=== PATIENT | female | born 1990 | race American Indian/Alaskan Native ===

== ENCOUNTER 2020-06-03 23:18 | Emergency (ER) | payer SELFPAY ==
[2020-06-03 23:59] VITALS: BP 117/75
--- NOTE | 2020-06-04 01:12 | XRay Report ---
CERVICAL SPINE 3 VIEWS INDICATION / CLINICAL INFORMATION: neck pain COMPARISON: None available. FINDINGS: BONES / JOINT(S): No acute fracture or subluxation. No significant arthritis. SOFT TISSUES: No significant abnormality. ADDITIONAL FINDINGS: None. Signer Name: Julio César Schulte MD Signed: 06/04/2020 1:07 AM Workstation Name: [id number]
== END 2020-06-04 02:10 | disposition left against medical advice (07) ==
LOC: ED 23:18
DX: R51 Headache (principal); M54.2 Cervicalgia; Z53.21 Procedure and treatment not carried out due to patient leaving prior to being seen by health care provider
CPT/HCPCS: 72040